=== PATIENT | female | born 1970 | race Caucasian/White ===

== ENCOUNTER 2019-04-27 11:31 | Emergency (ER) | payer MEDICAID ==
[~2019-04-27] VITALS: Ht 162.6 cm; Wt 72.6 kg
--- NOTE | 2019-04-27 11:31 | NUR ---
Patient to ER bed 1 to gown for evaluation. Side rails up. Report given to .
--- NOTE | 2019-04-27 11:32 | NUR ---
Patient arrived in the ED accompanied by her sister, c/o bodyaches, weakness, fevers and chills that started today. Denied any UTI or URI symptoms. Patient is alert and oriented x4, respirations even and unlabored, speaking in full sentences, ambulating with a tseady gait. Denied any chest pain, SOB or blurry vision at this time. VS WNL, pain level 6/10, running a 101.4F temp. Informed of the wait time. Instructed to notify ED staff for any change in condition or worsening of symptoms. Patient verbalized understanding.
--- NOTE | 2019-04-27 11:33 | NUR ---
ER at bedside examining patient.
[2019-04-27 11:35] VITALS: BP_SYST 157
[2019-04-27] MEDS ORDERED: NS 1000 ML IV.SOLN IV ONE (11:45)
[2019-04-27] MEDS ORDERED: PIPERACILLIN/TAZO 3.38 GM in D5W 50 ML IV ONE (11:45)
--- NOTE | 2019-04-27 11:51 | NUR ---
IV access obtained by RN with one attempt 20g. blood collected at same time.
[2019-04-27 12:00] LABS: BASOPHILS # (AUTO) 0.1 K/uL (0.0-0.2); BASOPHILS % (AUTO) 0.9 % (0.0-2.0); EOSINOPHILS % (AUTO) 0.1 % (0.0-4.0); HEMATOCRIT 38.5 % (36-48); HEMOGLOBIN 12.7 g/dL (12.0-16.0); LYMPHOCYTES # (AUTO) 1.3 K/uL (1.0-5.5); LYMPHOCYTES % (AUTO) 11.4 % (20.5-51.5); MEAN CORPUSCULAR HEMOGLOBIN 30 pg (27-31); MEAN CORPUSCULAR HGB CONC 33 % (32-36); MEAN CORPUSCULAR VOLUME 92 fL (79.0-98.0); MONOCYTES # (AUTO) 0.4 K/uL (0.0-1.0); NEUTROPHILS # (AUTO) 9.5 K/uL (1.8-7.7); NEUTROPHILS % (AUTO) 83.6 % (40.0-70.0); PLATELET COUNT (AUTO) 239 K/uL (130-430); RED BLOOD CELL COUNT(AUTO) 4.19 MIL/uL (4.2-6.2); WHITE BLOOD COUNT (AUTO) 11.3 K/uL (4.8-10.8)
--- NOTE | 2019-04-27 12:04 | NUR ---
X-ray tech at bedside.
[2019-04-27 12:19] LABS: CALCIUM 7.9 mg/dL (8.4-11.0); CREATININE 0.6 mg/dL (0.55-1.30); POTASSIUM 3.4 mmol/L (3.5-5.1)
[2019-04-27 12:22] LABS: ALBUMIN 3.6 g/dL (3.4-4.8); INR 1.1 (0.8-1.2); PROTHROMBIN TIME 11.3 SECS (9.5-12.5); TOTAL BILIRUBIN 0.4 mg/dL (0.0-1.0)
[2019-04-27 12:38] LABS: BILIRUBIN,URINE NEGATIVE (NEGATIVE); BLOOD, URINE 1+ (NEGATIVE); CLARITY/URINE OTHER (CLEAR); COLOR,URINE YELLOW (YELLOW); GLUCOSE,URINE NEGATIVE (NEGATIVE); KETONES,URINE NEGATIVE (NEGATIVE); LEUKOCYTE ESTERASE ,URINE 1+ (NEGATIVE); NITRITE, URINE POSITIVE (NEGATIVE); PROTEIN URINE NEGATIVE (NEGATIVE); UROBILINOGEN,URINE 0.2 (0.2-1.0)
--- NOTE | 2019-04-27 12:40 | NUR ---
Administered Zosyn IVPB as ordered by Dr. Lazcano. Patient tolerated the medication well.
[2019-04-27] MEDS ORDERED: PIPERACILLIN/TAZOBACTAM 3.375 GM/VIAL (ZOSYN) IV ONE (12:44)
[2019-04-27 12:48] LABS: BACTERIA,URINE MANY /HPF (None Seen)
[2019-04-27 12:49] LABS: MUCUS,URINE 1+ /LPF (None Seen)
--- NOTE | 2019-04-27 13:14 | NUR ---
Hang 2nd bag of NS 0.9% as ordered by Dr. Lazcano. Patient is sitting up in bed, speaking in full senteneces, denied any signs and symptoms of respiratory distress at this time. Daughters at bedside.
--- NOTE | 2019-04-27 13:16 | NUR ---
Patient stated she's not taking any prescription medications at home.
--- NOTE | 2019-04-27 14:00 | NUR ---
Patient given written and verbal discharge instructions and verbalizes understanding. ER MD discussed with patient the results and treatment provided. Patient in stable condition. ID arm band removed. IV catheter removed intact and dressing applied, no active bleeding. Rx of given. Patient educated on pain management and to follow up with PMD. Pain Scale 0/10. Opportunity for questions provided and answered. Medication side effect fact sheet provided.
[2019-04-27 14:52] VITALS: BP_SYST 109
== END 2019-04-27 14:00 | disposition home or self-care (01) ==
LOC: SED 11:31
DX: N39.0 Urinary tract infection, site not specified (principal)
CPT/HCPCS: 36415; 71045; 80053; 81000; 81025; 83605; 84484; 84703; 85025; 85610; 85730; 87040; 87086; 87186; 93005; 96365; 99284; J2543; J7030